=== PATIENT | male | born 1945 | race Caucasian/White ===

== ENCOUNTER 2024-01-22 12:31 | Day surgery (SDC) | payer MEDICARE ==
[~2024-01-22] VITALS: Ht 177.8 cm; Wt 88.6 kg
[~2024-01-22 12:31] MED LIST: ALBUTEROL2.5 MG/3 M INH; ALEVE220 M1 PO; ALL DAY ALLERGY10 MG PO; AZITHROMYCIN250 MG PO; CEFAZOLIN SODIUM 2 GM/20 ML SYR IV SCH; CETIRIZINE HCL10 MG PO; DAILY VITAMIN1 EAC2 PO; DIALYVITE V5000 UNIT PO; DIVALPROEX SOD500 MG PO; DOXEPIN HCL10 MG PO; IBLOOD GLUCOSE TEST STRIP 1 EA TEST VI PRN; K2 PLUS D3 TAB1 EACH PO; LACTATED RINGER'S 1,000 ML IV SCH; LIDOCAINE HCL 1% 5 ML SDV INJ ONE; LIPITOR20 MG PO; MELATONIN3 MG PO; MIRTAZAPINE30 MG PO; PREDNISONE20 MG PO; RESTORIL30 MG PO; VENTOLIN HFA18 GM PO
[2024-01-22] MEDS ORDERED: TRAMADOL HCL 50 MG TAB PO PRN (12:45)
[2024-01-22] MEDS ORDERED: LIDOCAINE 2% VISCOUS 6 ML SYR TOP ONE (12:45)
[2024-01-22] MEDS ORDERED: ondansetron HCL 4 MG/2 ML VIAL IV PRN (12:45)
[2024-01-22] MEDS ORDERED: HYDROmorphone HCL 1 MG/ML SYR IV PRN (12:45)
[2024-01-22] MEDS ORDERED: OXYCODONE/APAP 5/325 TAB PO PRN (12:45)
[2024-01-22 12:51] VITALS: BP 185/75
[2024-01-22 13:05] LABS: EOSINOPHILS 2.5 % (0-6); HEMATOCRIT 39.5 % (35.0-50.0); HEMOGLOBIN 13.7 g/dL (12.0-18.0); LYMPHOCYTES 23.5 % (24-44); MCH 32.1 (27-36); MCHC 34.7 g/dl (30-36); MCV 92.4 fl (81-99); MONOCYTES 10.3 % (0-12); NEUTROPHILS 62.7 % (39-80); PLATELET COUNT 223 K/uL (140-440); RBC 4.28 M/ul (4.3-5.7); RDW 13.4 (10.5-15.0)
[2024-01-22 13:20] LABS: ALBUMIN/GLOBULIN RATIO 1.33 (1.1-2.4); ANION GAP 14.1 (7-21); BUN/CREATININE RATIO 15.11 (6.0-28.6); CALCIUM 8.9 mg/dL (8.5-10.1); CREATININE, SERUM 0.86 mg/dL (0.70-1.30); POTASSIUM 4.1 mmol/L (3.5-5.1)
--- NOTE | 2024-01-22 13:25 | NUR ---
unable to void or wasnt able to be cathed per dr barrett so no ua obtained.
[2024-01-22] MEDS ORDERED: SEVOFLURANE 250 ML BTL INH ONE (13:40)
[2024-01-22] MEDS ORDERED: ondansetron HCL 4 MG/2 ML VIAL ONE (13:50)
[2024-01-22] MEDS ORDERED: DEXAMETHASONE SOD PHOS 4 MG/ML VIAL ONE (13:50)
[2024-01-22] MEDS ORDERED: propofoL 200 MG/20 ML VIAL ONE (13:50)
[2024-01-22] MEDS ORDERED: fentaNYL citrate 100 MCG/2 ML VIAL ONE (13:50)
[2024-01-22] MEDS ORDERED: LIDOCAINE HCL 2% 5 ML SDV ONE (13:50)
[2024-01-22 14:37] LABS: BILIRUBIN, URINE NEGATIVE (negative); BLOOD/HGB, URINE LARGE (Negative); KETONE, URINE NEGATIVE (Negative); LEUK ESTERASE, URINE NEGATIVE (negative); NITRITE, URINE NEGATIVE (negative)
[2024-01-22 14:45] LABS: RED BLOOD CELLS, URINE >50 /hpf (0-5)
[2024-01-22 14:46] LABS: BACTERIA, URINE RARE /hpf (negative); CASTS, URINE NONE SEEN \\lpf; COLLECTION TYPE, URINE CLEAN CATCH; CRYSTALS, URINE NONE SEEN (0-1+); EPITHELIAL CELLS, URINE NONE SEEN /lpf (0-1+); REFLEX CULTURE, URINE No (No); WHITE BLOOD CELLS, URINE 0-1 /HPF (0-5)
--- NOTE | 2024-01-22 14:54 | NUR ---
01/22/24 1459 Ledy Inman 1454-PATIENT ARRIVED TO PACU ON 6L MASK RR EVEN NONAROUSABLE SNORING. SR HR 70'S. IVF INFUSING. GUADARRAMA CATHETER IN PLACE DRAINING YELLOW URINE WITH SMALL AMTS OF BLOOD IN TUBING.
[2024-01-22 15:21] VITALS: BP 146/86
--- NOTE | 2024-01-22 15:32 | NUR ---
CHARLES 1520-PT BACK TO ROOM FROM PACU ON . RECEIVED REPORT FROM TERRA RIGGS. PT IS AWAKE. RESP EVEN AND UNLABORED. DENIES PAIN AND NAUSEA. PROVIDED PT WITH PUDDING AND CRACKERS. PT HAS WATER. NO OTHER NEEDS AT THIS TIME. CALL LIGHT WITHIN REACH.
--- NOTE | 2024-01-22 17:06 | NUR ---
CHARLES 1620-PT LAYING IN BED EATING A COOKIE. RESP EVEN AND UNLABORED. STATE PAIN IS 2/10 AND THIS IS TOLERABLE AT THIS TIME. PT WOULD LIKE TO GO HOME. FAMILY IN ROOM TO HELP PT GET DRESSED.
--- NOTE | 2024-01-22 17:07 | NUR ---
CHARLES 1433-WENT OVER DISCHARGE INSTRUCTIONS WITH PT AND . WENT OVER ALL DISCHARGE MEDICATIONS. ALL QUESTIONS ANSWERED. PT AMBULATE TO WHEELCHAIR AND RIDE PROVEDED TO FRONT OF HOSPITAL WHERE WAS WAITING WITH THE CAR.
== END 2024-01-22 16:35 | disposition home or self-care (01) ==
LOC: DS 12:31
PROVIDERS: ATTEND Urology
PROC: 0T7D8ZZ Dilation of Urethra, Via Natural or Artificial Opening Endoscopic (ICD-10-PCS; principal; 2024-01-22 18:25)
DX: N35.919 Unspecified urethral stricture, male, unspecified site (principal); R33.9 Retention of urine, unspecified; E78.00 Pure hypercholesterolemia, unspecified; F31.9 Bipolar disorder, unspecified; Z79.899 Other long term (current) drug therapy; Z85.46 Personal history of malignant neoplasm of prostate
CPT/HCPCS: 00910; 36415; 80053; 81001; 85025; J0690; J1100; J2003; J2405; J2704; J3010; J7121

== ENCOUNTER 2024-03-31 06:00 | Day surgery (SDC) | payer MEDICARE ==
[2024-03-25 15:41] VITALS: BP 134/72
[~2024-03-31] VITALS: Ht 177.8 cm; Wt 94.0 kg
[~2024-03-31 06:00] MED LIST changes: -CEFAZOLIN SODIUM 2 GM/20 ML SYR IV SCH; -IBLOOD GLUCOSE TEST STRIP 1 EA TEST VI PRN; -LIDOCAINE HCL 1% 5 ML SDV INJ ONE
[2024-03-31 06:17] VITALS: BP 137/68
[2024-03-31] MEDS ORDERED: CEFAZOLIN SODIUM 2 GM/20 ML SYR IV SCH (07:00)
[2024-03-31] MEDS ORDERED: IBLOOD GLUCOSE TEST STRIP 1 EA TEST VI PRN ×2 (07:00→08:30)
[2024-03-31] MEDS ORDERED: LIDOCAINE HCL 1% 5 ML SDV INJ ONE (07:00)
[2024-03-31] MEDS ORDERED: DEXAMETHASONE SOD PHOS 4 MG/ML VIAL ONE (07:21)
[2024-03-31] MEDS ORDERED: ondansetron HCL 4 MG/2 ML VIAL ONE (07:21)
[2024-03-31] MEDS ORDERED: fentaNYL citrate 100 MCG/2 ML VIAL ONE (07:21)
[2024-03-31] MEDS ORDERED: propofoL 200 MG/20 ML VIAL ONE (07:21)
[2024-03-31] MEDS ORDERED: LIDOCAINE HCL 2% 5 ML SDV ONE (07:22)
[2024-03-31] MEDS ORDERED: dexmedeTOMIDine HCl 200 MCG/2 ML VIAL ONE (07:26)
[2024-03-31] MEDS ORDERED: ondansetron HCL 4 MG/2 ML VIAL IV PRN ×2 (07:30→08:30)
[2024-03-31] MEDS ORDERED: HYDROmorphone HCL 1 MG/ML SYR IV PRN (07:30)
[2024-03-31] MEDS ORDERED: OXYCODONE/APAP 5/325 TAB PO PRN (07:30)
[2024-03-31] MEDS ORDERED: ACETAMINOPHEN 1,000 MG/100 ML VIAL ONE (07:32)
--- NOTE | 2024-03-31 07:33 | NUR ---
PT NOT AVAILABLE FOR VISIT. PROVIDED PRAYER.
[2024-03-31] MEDS ORDERED: TRANEXAMIC ACID 1,000 MG/10 ML AMP ONE (08:19)
[2024-03-31] MEDS ORDERED: NALOXONE HCL 0.4 MG SYR IV PRN (08:30)
[2024-03-31] MEDS ORDERED: fentaNYL citrate 50 MCG/ML SDV IV PRN (08:30)
[2024-03-31] MEDS ORDERED: SEVOFLURANE 250 ML BTL INH ONE (09:16)
[2024-03-31 09:33] VITALS: BP 116/63
--- NOTE | 2024-03-31 09:35 | NUR ---
PT ARRIVES TO DS DEPT FROM PACU VIA STRETCHER. PT IS A&O AND ASKING QUESTIONS APPROPRIATELY. PT REPORTS NO PAIN AT THIS TIME. SUPRAPUBIC CATH IN PLACE W/CBI CLAMPED, AND GUADARRAMA IN PLACE DRAINING CLEAR/PINK FLUID AT THIS TIME. PT ON RA W/O2 >90% VIA PULSE OX. PT RESPIRATIONS ARE EVEN AND UNLABORED, NO SIGNS OF DISTRESS. CALL LIGHT WITHIN REACH. REPORT RECEIVED FROM HORTENCIA RIGGS. WOODY IN ROOM W/PT AT THIS TIME. PT AND WOODY REPORT NO FURTHER QUESTIONS OR NEEDS AT THIS TIME. ICE WATER AND SNACKS PROVIDED.
--- NOTE | 2024-03-31 09:44 | NUR ---
03/31/24 0944 Lissa Hernandez 0850 PT ARRIVED IN PACU WITH CBI RUNNING WIDE OPEN THRU SUPRAPUBIC TUBE AND COMING OUT THE GUADARRAMA. DRAINAGE IN GUADARRAMA BAG IS BRIGHT RED COLORED. EMPTIED GUADARRAMA BAG OF 2300ML. 0900 SLOWED CBI DOWN, COLOR PALE PINK IN GUADARRAMA BAG. 0908 CLAMPED CBI AT THIS TIME. DRAINAGE PALE PINK. 0920 PT AWAKE AND TALKING TO STAFF. NO C/O'S. NO CHANGE IN DRAINAGE COLOR FROM EARLIER. 0935 TO DS WITH CBI TURNED OFF. REPORT GIVEN TO RN. AT BEDSIDE. CBI HAD 800ML IN AND 300ML OUT.
--- NOTE | 2024-03-31 10:10 | NUR ---
IN PT ROOM FOR ASSESSMENT OF URINE. URINE APPEARS PINK AND CLEAR, GUADARRAMA DC'ED AND SP CATH CAPPED. EDUCATION PROVIDED ON EMPTYING OF SP CATH AND ADDITIONAL CAP, URINAL, COLLECTION BAG, AND GRADUATED CYCLINDER PROVIDED. PT REMAINS PAIN FREE. PT STATES DESIRE TO GET DRESSED AT THIS TIME. WOODY (BRADLY), IN ROOM W/PT AT THIS TIME AND TO ASSIST. CALL LIGHT WITHIN REACH.
[2024-03-31 10:38] VITALS: BP 123/64
--- NOTE | 2024-03-31 10:45 | NUR ---
IN PT ROOM FOR DC EDUCATION. PT AND PT WOODY STATE VERBAL UNDERSTANDING AND NO FURTHER QUESTIONS OR NEEDS AT THIS TIME. SITE REMAINS C/D/I. ALL SUPPLIES PROVIDED FOR CATH CARE. PT OFF OF UNIT VIA WC TO PASSENGER SIDE OF VEHICLE. PT STATES NO FURTHER NEEDS OR QUESTIONS AT THIS TIME. ALL BELONGINGS IN PT POSSESSION.
--- NOTE | 2024-03-31 19:30 | EKG ---
[facility] [address] [facility] [place] [address] Signed Sinus bradycardia Otherwise normal ECG No previous ECGs available Confirmed by China Whitlock MD ([id number]) on 03/31/2024 7:29:49 PM Electronically Signed By: CHINA WHITLOCK MD 03/31/241929 PATIENT NAME: ASHVIN RIVAS CARRILLO Electrocardiogram DATE OF : 41 PHYSICIAN: CHINA WHITLOCK MD REPORT #: [id number] REPORT IS CONFIDENTIAL AND NOT TO BE RELEASED WITHOUT AUTHORIZATION
[2024-04-01] MEDS ORDERED: CIPROFLOXACIN500 MG (04:28)
[2024-04-01] MEDS ORDERED: HYDROCODON-ACE1 EA10 (04:28)
== END 2024-03-31 10:50 | disposition home or self-care (01) ==
LOC: DS 06:00
PROVIDERS: ATTEND Urology
PROC: 0T9B80Z Drainage of Bladder with Drainage Device, Via Natural or Artificial Opening Endoscopic (ICD-10-PCS; 2024-03-31)
PROC: 0TJB8ZZ Inspection of Bladder, Via Natural or Artificial Opening Endoscopic (ICD-10-PCS; principal; 2024-03-31 07:30)
DX: R33.9 Retention of urine, unspecified (principal); N99.112 Postprocedural membranous urethral stricture, male; C61 Malignant neoplasm of prostate; J44.9 Chronic obstructive pulmonary disease, unspecified; E78.00 Pure hypercholesterolemia, unspecified; Z79.899 Other long term (current) drug therapy; Z87.891 Personal history of nicotine dependence
CPT/HCPCS: 00860; 93005; 93010; J0131; J0690; J1100; J2003; J2405; J2704; J3010

== ENCOUNTER 2024-04-01 03:58 | Emergency (ER) | payer MEDICARE ==
[~2024-04-01] VITALS: Ht 177.8 cm; Wt 93.9 kg
[~2024-04-01 03:58] MED LIST changes: -LACTATED RINGER'S 1,000 ML IV SCH
[2024-04-01] MEDS ORDERED: TRANEXAMIC ACID IN NACL,ISO-OS 1,000 MG/100 ML PIGGYBACK IV ONE (04:15)
[2024-04-01] MEDS ORDERED: HYDROCODON-ACE1 EA10 (04:28)
[2024-04-01] MEDS ORDERED: CIPROFLOXACIN500 MG (04:28)
[2024-04-01 04:42] LABS: HEMOGLOBIN 11.4 g/dL (12.0-18.0); MCH 32.3 (27-36)
[2024-04-01 04:45] LABS: BASOPHILS 0.3 % (0-2); HEMATOCRIT 32.6 % (35.0-50.0); LYMPHOCYTES 8.5 % (24-44); MCHC 34.9 g/dl (30-36); MCV 92.7 fl (81-99); MONOCYTES 7.4 % (0-12); NEUTROPHILS 83.8 % (39-80); PLATELET COUNT 240 K/uL (140-440); RBC 3.52 M/ul (4.3-5.7); RDW 13.7 (10.5-15.0)
[2024-04-01] MEDS ORDERED: MORPHINE SULFATE 4 MG/ML VIAL IV ONE (05:00)
[2024-04-01 07:30] VITALS: BP 148/76
[2024-04-02] MEDS ORDERED: CEPHALEXIN500 MG PO (06:35)
[2024-04-02] MEDS ORDERED: OXYCODONE HCL5 MG PO (06:36)
== END 2024-04-01 07:33 | disposition home or self-care (01) ==
LOC: ED 03:58
PROVIDERS: Family Medicine
DX: T83.090A Other mechanical complication of cystostomy catheter, initial encounter (principal); R33.8 Other retention of urine; E78.00 Pure hypercholesterolemia, unspecified; Z87.891 Personal history of nicotine dependence; Z79.899 Other long term (current) drug therapy
CPT/HCPCS: 36415; 74178; 85025; 96365; 99283-25; Q9967

== ENCOUNTER 2024-04-02 06:00 | Day surgery (SDC) | payer MEDICARE ==
[~2024-04-02 06:00] MED LIST changes: +CIPROFLOXACIN500 MG; +HYDROCODON-ACE1 EA10; +LACTATED RINGER'S 1,000 ML IV SCH
[2024-04-02 06:30] VITALS: BP 134/64; BP 14/64
[2024-04-02] MEDS ORDERED: CEPHALEXIN500 MG PO ×2 (06:35)
[2024-04-02] MEDS ORDERED: OXYCODONE HCL5 MG PO ×2 (06:36)
[2024-04-02] MEDS ORDERED: IBLOOD GLUCOSE TEST STRIP 1 EA TEST VI PRN ×2 (07:00→07:45)
[2024-04-02] MEDS ORDERED: LIDOCAINE HCL 1% 5 ML SDV INJ ONE (07:00)
[2024-04-02] MEDS ORDERED: CEFAZOLIN SODIUM 2 GM/20 ML SYR IV SCH (07:00)
[2024-04-02] MEDS ORDERED: propofoL 200 MG/20 ML VIAL ONE (07:18)
[2024-04-02] MEDS ORDERED: DEXAMETHASONE SOD PHOS 4 MG/ML VIAL ONE (07:18)
[2024-04-02] MEDS ORDERED: fentaNYL citrate 100 MCG/2 ML VIAL ONE (07:18)
[2024-04-02] MEDS ORDERED: ACETAMINOPHEN 1,000 MG/100 ML VIAL ONE (07:18)
[2024-04-02] MEDS ORDERED: ondansetron HCL 4 MG/2 ML VIAL ONE (07:18)
[2024-04-02] MEDS ORDERED: LIDOCAINE HCL 2% 5 ML SDV ONE (07:18)
[2024-04-02 07:34] VITALS: BP 126/56
[2024-04-02] MEDS ORDERED: dexmedeTOMIDine HCl 200 MCG/2 ML VIAL ONE (07:44)
[2024-04-02] MEDS ORDERED: TRAMADOL HCL 50 MG TAB PO PRN (07:45)
[2024-04-02] MEDS ORDERED: MORPHINE SULFATE 15 MG TABCR PO PRN (07:45)
[2024-04-02] MEDS ORDERED: PHENAZOPYRIDINE HCL 100 MG TAB PO PRN (07:45)
[2024-04-02] MEDS ORDERED: OXYCODONE/APAP 5/325 TAB PO PRN (07:45)
[2024-04-02] MEDS ORDERED: ondansetron HCL 4 MG/2 ML VIAL IV PRN ×2 (07:45)
[2024-04-02] MEDS ORDERED: NALOXONE HCL 0.4 MG SYR IV PRN (07:45)
[2024-04-02] MEDS ORDERED: HYOSCYAMINE SULFATE 0.375 MG TAB.ER.12H PO PRN (07:45)
[2024-04-02] MEDS ORDERED: fentaNYL citrate 50 MCG/ML SDV IV PRN (07:45)
[2024-04-02] MEDS ORDERED: HYDROmorphone HCL 1 MG/ML SYR IV PRN (07:45)
[2024-04-02] MEDS ORDERED: ePHEDrine sulfate 50 MG/ML AMP ONE (08:23)
[2024-04-02] MEDS ORDERED: VASOPRESSIN 20 UNITS/ML VIAL ONE (08:26)
[2024-04-02] MEDS ORDERED: SEVOFLURANE 250 ML BTL INH ONE (10:19)
[2024-04-02 10:21] VITALS: BP 119/52
--- NOTE | 2024-04-02 10:34 | NUR ---
[facility] WITH NO C/O'S. SP CATHETER ATTACHED TO GRAVITY BAG WITH CLEAR MILES URINE PRESENT. GUADARRAMA CATHETER ATTACHED TO GRAVITY BAG WITH NO DRAINAGE NOTED. 1000 SITTING UP IN BED TALKING TO STAFF. EDUCATED PT ON HIS CATHETERS AND HOW LONG THEY WILL BE IN PLACE. 1015 TALKING TO STAFF. NO C/O'S. 1023 TO DS. REPORT GIVEN TO RN. AT BEDSIDE.
--- NOTE | 2024-04-02 11:15 | NUR ---
IN PT ROOM FOR ASSESSMENT AND VS. PT REPORTS NO PAIN AT THIS TIME. PT TOLERATED SIPS OF ICE WATER AND FULL CUP OF COFFEE WITHOUT DIFFICULTY OR ONSET OF NAUSEA. PT REPORTS NO DIZZINESS OR SOB. PT GETTING DRESSED AT THIS TIME W/ASSISTANCE FROM WOODY. CALL LIGHT WITHIN REACH.
[2024-04-02 11:17] VITALS: BP 114/59
--- NOTE | 2024-04-02 11:28 | NUR ---
THIS RN IN ROOM FOR DC EDUCATION AT THIS TIME. PT AND PT WOODY STATE VERBAL UNDERSTANDING AND NO FURTHER QUESTIONS OR NEEDS AT THIS TIME. PT OFF OF UNIT VIA WC TO PASSENGER SIDE OF 'S VEHICLE. ALL BELONGINGS IN PT POSSESSION W/APPROPRIATE SUPPLIES. PT AND PT STATE NO FURTHER NEEDS.
== END 2024-04-02 11:30 | disposition home or self-care (01) ==
LOC: DS 06:00
PROVIDERS: ATTEND Urology
PROC: 0TCB8ZZ Extirpation of Matter from Bladder, Via Natural or Artificial Opening Endoscopic (ICD-10-PCS; principal; 2024-04-02 07:30)
DX: N35.913 Unspecified membranous urethral stricture, male (principal); N32.89 Other specified disorders of bladder; J44.9 Chronic obstructive pulmonary disease, unspecified; E78.00 Pure hypercholesterolemia, unspecified; F31.9 Bipolar disorder, unspecified; C61 Malignant neoplasm of prostate
CPT/HCPCS: 00910; J0131; J0690; J1100; J2003; J2405; J2704; J3010; J7121